=== PATIENT | male | born 1950 | race African-American/Black ===

== ENCOUNTER → 2019-02-21 | Outpatient (CLI) | payer MEDICARE ==
--- NOTE | 2019-02-21 10:33 | Diagnostic Imaging Report ---
EXAMINATION: CHEST 2 VIEWS INDICATION: Smoking history COMPARISON: None FINDINGS: LINES/TUBES:None LUNGS:Lungs are well-inflated. No focal consolidation or pulmonary edema. No radiographically apparent pulmonary nodule. PLEURA:No pleural effusion or pneumothorax. MEDIASTINUM:The heart is at the upper limits of normal for size. BONES/SOFT TISSUES:No acute osseous injury. ABDOMEN:No free air under the diaphragm. IMPRESSION: No focal pneumonia or pulmonary edema. No radiographically apparent pulmonary nodule. Please note that chest radiography is not sensitive for detection of small pulmonary nodules. If the patient has an extensive smoking history that meets criteria for screening, chest CT is recommended for superior sensitivity. Signed by: Eric Gaytan MD on 02/21/2019 10:29 AM
--- NOTE | 2019-02-21 10:36 | Diagnostic Imaging Report ---
EXAMINATION: SP LUMBAR, COMPLETE MIN 4VW, SACRUM X-RAY, KNEE RIGHT THREE VIEWS INDICATION: Back pain, knee pain COMPARISON: None FINDINGS: Lumbar spine: 4 views of the lumbar spine demonstrate no compression fracture. Alignment is anatomic. Multilevel degenerative changes of the lumbar spine with disc space narrowing, bulky osteophyte formation, and facet arthropathy. Sacrum: 2 views of the sacrum demonstrate no acute fracture or dislocation. Right knee: 3 views of the right knee demonstrate no acute fracture or dislocation. Alignment is anatomic. There are moderate patellofemoral compartment predominant degenerative changes with joint space narrowing, osteophyte formation and subchondral cystic change. No substantial joint effusion. IMPRESSION: No acute osseous injury of the lumbar spine, sacrum or right knee. Multilevel degenerative changes of the lumbar spine. 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 Signed by: Eric Gaytan MD on 02/21/2019 10:33 AM
== END ==
LOC: RAD 09:02
PROVIDERS: ATTEND Internal Medicine
DX: M17.11 Unilateral primary osteoarthritis, right knee (principal); M47.817 Spondylosis without myelopathy or radiculopathy, lumbosacral region; Z72.0 Tobacco use
CPT/HCPCS: 71046; 72110; 72220